=== PATIENT | female | born 1970 | race Caucasian/White ===

== ENCOUNTER → 2016-04-19 | Outpatient (CLI) | payer OTHER ==
--- NOTE | 2016-04-19 10:50 | ECHOF ---
Referral Reason:R002 palpitations MEASUREMENTS -------- HEIGHT: 160.0 cm WEIGHT: 63.5 kg BP: IVSd: 0.9 cm (0.6 - 1.1) LVIDd: 3.5 cm (3.9 - 5.3) LVPWd: 0.8 cm (0.6 - 1.1) IVSs: 0.9 cm LVIDs: 2.9 cm LVPWs: 1.0 cm LA Diam: 3.6 cm (2.7 - 3.8) LAESV Index (A-L): 23.28 ml/m Ao Diam: 2.6 cm (2.0 - 3.7) AV Cusp: 1.6 cm (1.5 - 2.6) LA Diam: 3.4 cm (2.7 - 3.8) MV EXCURSION: 15.488 mm (> 18.000) MV EF SLOPE: 85 mm/s (70 - 150) EPSS: 0.3 cm MV E Ki: 0.73 m/s MV DecT: 275 ms MV A Ki: 0.84 m/s MV E/A Ratio: 0.88 RAP: 5.00 mmHg RVSP: 23.58 mmHg FINDINGS -------- Sinus rhythm. This was a technically good study. LV size, wall thickness and systolic function are normal, with an EF greater than 55%. The right ventricle is normal in size. Normal LA size by volume 22+/-6 ml/m2. The right atrial size is normal. The aortic valve is trileaflet, and appears structurally normal. No aortic stenosis or regurgitation. Mild mitral regurgitation is present. Mild tricuspid regurgitation present. There is no evidence of pulmonary hypertension. The right ventricular systolic pressure, as measured by Doppler, is 23.58mmHg. There is no pulmonic regurgitation present. The aortic root size is normal. There is no pericardial effusion. CONCLUSIONS -------- 1. LV size, wall thickness and systolic function are normal, with an EF greater than 55%. 2. The aortic valve is trileaflet, and appears structurally normal. No aortic stenosis or regurgitation. 3. Mild mitral regurgitation is present. 4. Mild tricuspid regurgitation present. 5. There is no evidence of pulmonary hypertension. 6. The right ventricular systolic pressure, as measured by Doppler, is 23.58mmHg. RIVET SPINNER: Ayala Singh RDCS
== END | disposition home or self-care (01) ==
LOC: RADECHMAIN 08:23
PROVIDERS: ATTEND Family Medicine
DX: I08.1 Rheumatic disorders of both mitral and tricuspid valves (principal)
CPT/HCPCS: 93306

== ENCOUNTER → 2016-05-20 | Outpatient (CLI) | payer OTHER ==
[2016-05-20 09:09] LABS: Basophils % (A) 1 %; CH 29.9; CHCM 32.9; Eosinophils # (A) 0.1 k/uL (0-0.7); Eosinophils % (A) 2 %; HCT 42.8 % (34.0-46.0); HGB 13.4 gm/dL (11.4-16.0); Luc # (Auto) 0.09; Luc % (Auto) 2; Lymphocytes # (A) 1.1 k/uL (1.0-4.8); Lymphocytes % (A) 24 %; MCH 28.5 pg (25.0-35.0); MCHC 31.3 g/dL (31.0-37.0); MCV 91.1 fL (80.0-100.0); Mean Platelet Volume 6.3; Monocytes # (A) 0.2 k/uL (0-1.0); Monocytes % (A) 5 %; Neutrophils # (A) 3.1 k/uL (1.3-7.7); Neutrophils % (A) 67 %; RDW 13.1 % (11.5-15.5); WBC 4.7 k/uL (3.8-10.6); WBC (Perox) 4.96
[2016-05-20 09:30] LABS: Anion Gap 9 mmol/L; Blood Urea Nitrogen 7 mg/dL (7-17); Carbon Dioxide 26 mmol/L (22-30); Chloride 106 mmol/L (98-107); Glucose 96 mg/dL (74-99); Non-African American GFR(MDRD) >60 (>60 ml/min/1.73 sqM); Potassium 4.4 mmol/L (3.5-5.1); Sodium 141 mmol/L (137-145)
== END | disposition home or self-care (01) ==
LOC: LABPAT 08:28
PROVIDERS: ATTEND Obstetrics & Gynecology
DX: Z01.812 Encounter for preprocedural laboratory examination (principal); D21.9 Benign neoplasm of connective and other soft tissue, unspecified; R10.2 Pelvic and perineal pain
CPT/HCPCS: 80051; 82565; 82947; 84520; 85025; 87086

== ENCOUNTER 2016-05-27 05:53 | Observation (INO) | payer OTHER ==
[2016-05-16 15:26] VITALS: BMI 24.7
--- NOTE | 2016-05-24 10:44 | HP ---
DATE OF ADMISSION: 05/27/2016 HISTORY OF PRESENT ILLNESS: The patient is a 45-year-old 2, para 2-0-0-2 [address] referred [address] Dr[address] Luna for evaluation of ongoing significant pelvic pain and a fibroid uterus. She reports that she has had several months of significant midline suprapubic pain, which she had never had before. Motrin has given her minimal relief and no other interventions had been made to that date. Ultrasound showed a 4 x 4 cm fundal fibroid as well as a 2.2 cm complex left ovarian cyst. She has undergone a NovaSure endometrial ablation in the past, but pelvic pain has been building over the course of the last number of months as noted above. Her has had a previous vasectomy. She presents to discuss options and, after that discussion, has opted for definitive therapy with hysterectomy. PAST MEDICAL HISTORY: Significant for hypothyroidism. PAST SURGICAL HISTORY: Significant for laparoscopy in 2003 followed by NovaSure endometrial ablation in 2004. She additionally had a breast biopsy in 2016 on the right side. There were no anesthetic concerns. OBSTETRICAL HISTORY: 2, para 2-0-0-2, with 2 vaginal deliveries without complications. Method of contraception is vasectomy. GYNECOLOGIC HISTORY: Unremarkable with no history of any infections to include STDs. FAMILY HISTORY: Noncontributory. 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 She is a nonsmoker and denies any significant alcohol or any other social concerns. Current medications include: 1. Maxalt 10 mg p.r.n. 2. Synthroid 75 mcg daily. 3. Topiramate 50 mg daily. 4. Valtrex 1 gram daily. 5. Flonase daily. 6. Flexeril 10 mg p.r.n. 7. Vitamin D daily. 8. Zoloft 50 mg daily. ALLERGIES: BIAXIN caused nausea and vomiting. LIPITOR and PRAVACHOL both caused muscle pain. Review of systems is confined to history of present illness. PHYSICAL EXAMINATION: In general, this is a well-developed, well-nourished, white female in no acute distress. Her heart has a regular rhythm and rate without murmur. Her lungs are clear to auscultation bilaterally in all gonzalez. Her abdomen is nondistended, has normoactive bowel sounds, is soft, nontender, and without any palpable masses, hepatosplenomegaly or hernias. Her extremities are without any cyanosis, clubbing or edema and are nontender to palpation bilaterally. Pelvic examination demonstrates normal external genitalia and BUS with normal vaginal mucosa and cervix. There is no cervical motion tenderness. The uterus is 7 weeks in size, slightly irregular in shape, mobile, but with no significant descensus to the pelvis. The adnexa are normal and nontender without mass bilaterally. ASSESSMENT AND PLAN: Increasing pelvic pain and fibroid uterus: We discussed multiple different options for intervention and she has chosen definitive therapy with hysterectomy. Her examination bears out that she is only a candidate for a robotic or abdominal approach. As a result we have scheduled a da Antony robotically assisted laparoscopic hysterectomy with probable bilateral salpingectomy, and diagnostic cystoscopy. The risks and complications of these procedures have been thoroughly discussed including the risks for bleeding, bleeding requiring transfusion, infection, and injury to local structures to specifically include the bowel, bladder and ureters. We also discussed injuries that are unique to da Antony surgery to include thermal injury and the possibility of vaginal cuff dehiscence. She has understood all of these concerns and agreed to proceed. We went on to discuss the typical hospital and postoperative courses. At this time, we are scheduled for the above procedure on the morning of 05/27/16.
[~2016-05-27 05:53] MED LIST: DEXAMETHASONE SOD PHOSPHATE 10 MG/ML 1 ML VIAL IV ONE; FAMOTIDINE 20 MG/2 ML VIAL IV PRN; HYDROmorphone 1 MG/ML 1 ML SYRINGE IVP PRN; MIDAZOLAM 2 MG/2 ML VIAL IV PRN; ONDANSETRON 4 MG/2 ML VIAL IVP ONE; SCOPOLAMINE 1.5MG/72HR PATCH TRANSDERM ONE; ceFAZolin 2 GM in SODIUM CHLORIDE 0.9% 100 ML IVPB ONE
[2016-05-27] MEDS: LIDOCAINE 1% 20 ML VIAL (10MG/ML) FOR IV START INTRADERMA PRN ×2 (06:32→06:35)
[2016-05-27] MEDS: LACTATED RINGERS 1,000 ML IV SCH ×3 (06:43→19:19)
[2016-05-27] MEDS ORDERED: KETOROLAC 30 MG/ML 1 ML VIAL ONE (07:37)
[2016-05-27] MEDS ORDERED: ROCURONIUM BROMIDE 10 MG/ML 10 ML VIAL IV ONE (07:37)
[2016-05-27] MEDS ORDERED: diphenhydrAMINE 50 MG/ML 1 ML VIAL ONE (07:37)
[2016-05-27] MEDS ORDERED: MIDAZOLAM 2 MG/2 ML VIAL ONE (07:37)
[2016-05-27] MEDS ORDERED: SUCCINYLCHOLINE CHLORIDE 100 MG/5 ML SYR IV ONE (07:37)
[2016-05-27] MEDS ORDERED: NEOSTIGMINE 1 MG/ML 10 ML VIAL ONE (07:37)
[2016-05-27] MEDS ORDERED: fentaNYL (PF) 50 MCG/ML 2 ML AMP ONE (07:37)
[2016-05-27] MEDS ORDERED: LIDOCAINE 1% INJ 10MG/ML (20 ML MDV) ONE (07:37)
[2016-05-27] MEDS ORDERED: GLYCOPYRROLATE 0.2 MG/ML 2 ML VIAL ONE (07:37)
[2016-05-27] MEDS ORDERED: PROPOFOL 10 MG/ML 20 ML VIAL IV ONE (07:37)
[2016-05-27] MEDS ORDERED: IBUPROFEN 600 MG TAB PO PRN (07:38)
[2016-05-27] MEDS ORDERED: Acetaminophen-Codeine 300-30mg TAB PO PRN (07:38)
[2016-05-27] MEDS ORDERED: SIMETHICONE 80 MG CHEWABLE PO PRN (07:38)
[2016-05-27] MEDS ORDERED: diphenhydrAMINE 50 MG/ML 1 ML VIAL IVP PRN (07:38)
[2016-05-27] MEDS ORDERED: ONDANSETRON 4 MG/2 ML VIAL IVP PRN (07:38)
[2016-05-27] MEDS ORDERED: METOCLOPRAMIDE 5 MG/ML 2 ML VIAL IVP PRN (07:38)
[2016-05-27] MEDS ORDERED: BUPIVACAINE (PF) 0.5% 30 ML VIAL SQ ONE (08:03)
--- NOTE | 2016-05-27 09:34 | P.OP ---
Date of Procedure: 05/27/16 Preoperative Diagnosis: #1. Pelvic pain #2. Fibroid uterus Postoperative Diagnosis: Same Procedure(s) Performed: #1. Da Antony robotically assisted laparoscopic hysterectomy with bilateral salpingectomy #2. Diagnostic cystoscopy Anesthesia: CHANTE Surgeon: Aftab Nguyen Buffing Wheel Presser #1: Genna Flores Estimated Blood Loss (ml): 50 IV fluids (ml): 850 Urine output (ml): 300 Pathology: other (Uterus and bilateral fallopian tubes) Condition: stable Disposition: PACU Operative Findings: Preoperative pelvic examination demonstrated a 5-6 week acutely anteverted mobile normal shaped uterus with normal adnexa bilaterally. Intraoperatively, the findings were confirmed though there was a relatively large right fundal fibroid present. The tubes and ovaries otherwise appeared entirely normal. The appendix was also normal to inspection. Following the procedure, the bilateral ureteral orifices were seen peristalsing and the bladder appeared to be uninjured from a hysteroscopic and laparoscopic viewpoint. Description of Procedure: The patient was prepped and draped in usual fashion after general endotracheal anesthesia was administered by the anesthesiologist. A weighted speculum was placed and the anterior lip of the cervix grasped with a single-tooth tenaculum. The uterus was sounded to 9 cm for selection of an 8 cm uterine manipulator. The cervix measured 2 just over 2.5 cm allowing for selection of a 3 cm Omayra cup. Surgical stay sutures were placed from 10 until 8 and 2-4 and the cervix and tied down. These were then inserted through the Omayra cup and the Kaykay manipulator placed in standard fashion and of the cervix. The Kirby catheter was then placed. Attention was then turned to the abdomen where a roughly 8 mm incision was made in the vertical fold of the umbilicus allowing insertion of a 5 mm optical trocar under direct visualization without difficulty. A pneumoperitoneum was established. A site was selected approximately 10-12 cm lateral to the optical port and 1-27 m below it in the right lower quadrant where an 8 mm incision was made in the transverse plane allowing insertion of an 8 mm da Antony port under direct visualization without difficulty. A similar operation was carried out on the left side. The left port and the optical port were then divided and a roughly 10 mm incision made just above the level of the optical port allowing insertion of a 10 mm visual merchandising assistant port under direct visualization without difficulty. The scope was switched to a separate port and the 5 mm optical port removed and replaced with a and 8mm da Antony optical port. The robot was docked to the patient without difficulty and the right arm loaded with a monopolar cautery scissors 1 left arm was armed with a [place] bipolar cautery forceps. The left fallopian tube was then dissected from the underlying ovary down to the level of the utero- ovarian ligament which was then cauterized and cut through to the round ligament. The anterior bladder peritoneum was then undermined and opened sharply with monopolar cautery. The uterine vasculature was skeletonized and then cauterized using the [place] bipolar cautery forceps. Attention was turned to the other side where similar operations were carried out without difficulty. Once the uterine vasculature had been cauterized bilaterally attention was turned to the posterior cul-de-sac where the Omayra cup was identified and opened sharply with the monopolar cautery. This was followed around in both directions using cautery as necessary along the way. These her path was to come around the left aspect of the vasculature and followed across the anterior leaf of the peritoneum having further dissected the bladder peritoneum distally. Ultimately 2 incisions were connected on the right side and bleeding was controlled. The uterus was removed into the vagina and the monopolar scissors replaced with a laparoscopic suturing device. A stitch of 0 strata fix suture was utilized to close the vaginal cuff from one angle to the other. The cuff was then thoroughly suctioned irrigated and reexamined and hemostasis noted to be adequate. I then removed myself from the controls and return to the patient where the Kirby catheter was removed and a diagnostic cystoscope placed within the bladder. The bilateral ureteral hallux were noted and both seen to be peristalsing. The bladder was then filled to some extent and the dome examined from the cystoscopic and laparoscopic side with no evidence of any injury. The scope was then removed and the Kirby catheter replaced. The robot was undocked, the patient leveled and all trochars removed. The incisions were closed with interrupted subcuticular stitches of 4- 0 Vicryl which were then infused with a total of 10 mL of half percent Marcaine without epinephrine. Estimated blood loss for the case was approximately 50 mL. There were no complications. All sponge, history, needle counts were correct. The patient tolerated the procedure well and proceeded to the recovery room in stable condition.
[2016-05-27] MEDS ORDERED: HYDROmorphone 1 MG/ML 1 ML SYRINGE IVP ONE ×2 (10:19→10:25)
[2016-05-27] MEDS: SENNOSIDES-DOCUSATE SODIUM 1 EACH TAB PO SCH ×2 (13:27→21:30)
[2016-05-27] MEDS: KETOROLAC 30 MG/ML 1 ML VIAL IVP PRN ×2 (13:30→19:17)
[2016-05-27] MEDS: Acetaminophen-Codeine 300-30mg TAB PO PRN (21:31)
[2016-05-28] MEDS: KETOROLAC 30 MG/ML 1 ML VIAL IVP PRN (02:18)
[2016-05-28] MEDS: LACTATED RINGERS 1,000 ML IV SCH (04:56)
[2016-05-28] MEDS: Acetaminophen-Codeine 300-30mg TAB PO PRN (04:59)
[2016-05-28 08:04] VITALS: PULSE 57
[2016-05-28 08:11] LABS: Basophils % (A) 0 %; CH 29.9; CHCM 33.2; Eosinophils % (A) 1 %; HCT 32.5 % (34.0-46.0); HDW 2.31; HGB 10.8 gm/dL (11.4-16.0); Luc # (Auto) 0.11; Luc % (Auto) 2; Lymphocytes # (A) 1.6 k/uL (1.0-4.8); Lymphocytes % (A) 27 %; MCHC 33.1 g/dL (31.0-37.0); MCV 90.6 fL (80.0-100.0); Mean Platelet Volume 6.9; Monocytes # (A) 0.3 k/uL (0-1.0); Monocytes % (A) 5 %; Neutrophils # (A) 3.9 k/uL (1.3-7.7); Neutrophils % (A) 65 %; RBC 3.58 m/uL (3.80-5.40); RDW 12.9 % (11.5-15.5); WBC (Perox) 6.62
[2016-05-28 08:30] VITALS: BP 94/60; RESP 20; TEMP 97.6
--- NOTE | 2016-05-28 08:48 | P.DS ---
Providers Date of admission: 05/28/16 02:28 Expected date of discharge: 05/28/16 Attending physician: Aftab Nguyen Primary care physician: Stated None - Discharge Diagnosis(es) (1) Fibroid uterus Current Visit: Yes Status: Acute (2) Pelvic pain Current Visit: Yes Status: Acute Hospital Course: The patient is a 45-year-old 2 para 2001 who was referred by Dr. Salomon for ongoing significant pelvic pain and admitted fibroid uterus. She's had several months of significant midline suprapubic pain which is worsening over time and significantly more than she's had in the past. She's had minimal relief from [id number] pain medications. Ultrasound documented fibroids as noted above. She has undergone ablation in the past and continues to have significantly increasing pain possibly consistent with hematometra or adenomyosis. She has requested definitive treatment with hysterectomy. Her examination made da Antony the most reasonable approach. She was taken to the operating room where she underwent da Antony robotically assisted laparoscopic hysterectomy with bilateral salpingectomy and the diagnostic cystoscopy. The procedures were carried out in an uncomplicated fashion. Her postoperative course was unremarkable with vital signs remaining stable and her temperature was afebrile throughout. She was deemed stable for discharge by postoperative day #1 was discharged home to follow-up in the office in 2 weeks for incision checks and 8 weeks routinely. Discharge instructions included calling for any significantly increased bleeding, abdominal pain, GI complaints, incisional complaints, or anything else that concerned her. She was additionally instructed to have nothing in the vagina for at least 8 weeks time to include intercourse and to abstain from heavy lifting over the next several weeks. She was last instructed to do no driving until off of all pain medications or 2 weeks' time, whichever came first. She understood her instructions and agrees to follow up as noted above. Discharge medications included a prescription for Tylenol 3, 1-2 by mouth every 6 hours when necessary pain, #30 dispensed with no refills. Discharge hemoglobin and hematocrit were 10.8 and 32.5 respectively. Procedures: #1. Da Antony robotically assisted laparoscopic hysterectomy with bilateral salpingectomy #2. Diagnostic cystoscopy Patient Condition at Discharge: Good Plan - Discharge Summary New Discharge Prescriptions: Acetaminophen-Codeine 300-30mg [Tylenol #3] 2 tab PO Q6H PRN #30 tablet PRN Reason: Pain Discharge Medication List Acyclovir 5% Oint [Zovirax Oint] 1 applic TOPICAL 5XD PRN 05/16/16 [History] Cholecalciferol [Vitamin D3] 2,000 unit PO DAILY 05/16/16 [History] Cyclobenzaprine [Flexeril] 10 mg PO HS PRN 05/16/16 [History] Ibuprofen [Motrin] 800 mg PO Q8H PRN 05/16/16 [History] Levothyroxine Sodium [Synthroid] 75 mcg PO DAILY 05/16/16 [History] Multivitamin [Multivitamins Adult Gummies] 1 tab PO DAILY 05/16/16 [History] Rizatriptan Benzoate [Maxalt] 10 mg PO DAILY PRN 05/16/16 [History] Sertraline [Zoloft] 50 mg PO HS 05/16/16 [History] Topiramate [Topamax] 50 mg PO HS 05/16/16 [History] valACYclovir HCL [Valtrex] 1,000 mg PO DAILY PRN 05/16/16 [History] Acetaminophen-Codeine 300-30mg [Tylenol #3] 2 tab PO Q6H PRN #30 tablet [Rx] Follow up Appointment(s)/Referral(s): Aftab Nguyen MD [STAFF PHYSICIAN] - 2 Weeks Patient Instructions/Handouts: Laparoscopic Hysterectomy (DC), Laparoscopic Hysterectomy (GEN) Discharge Disposition: HOME SELF-CARE
[2016-05-28] MEDS: SENNOSIDES-DOCUSATE SODIUM 1 EACH TAB PO SCH (09:10)
== END 2016-05-28 09:26 | disposition home or self-care (01) ==
LOC: OR 05:53 → 6PED 09:45 → OR 05-28 02:28
PROVIDERS: ADMIT Obstetrics & Gynecology; ATTEND Obstetrics & Gynecology
DX: D25.9 Leiomyoma of uterus, unspecified (principal); E03.9 Hypothyroidism, unspecified; N83.8 Other noninflammatory disorders of ovary, fallopian tube and broad ligament; N87.9 Dysplasia of cervix uteri, unspecified; N72 Inflammatory disease of cervix uteri; Z79.899 Other long term (current) drug therapy; Z79.51 Long term (current) use of inhaled steroids; Z88.1 Allergy status to other antibiotic agents; Z88.8 Allergy status to other drugs, medicaments and biological substances; G43.909 Migraine, unspecified, not intractable, without status migrainosus
CPT/HCPCS: 52000; 58571; S2900; 81025; 85025; 86850; 86900; 86901; 88307

== ENCOUNTER → 2016-12-31 | Outpatient (CLI) | payer OTHER ==
--- NOTE | 2016-12-31 08:10 | US ---
EXAMINATION TYPE: US thyroid st tissue head/neck DATE OF EXAM: 12/31/2016 COMPARISON: US CLINICAL HISTORY: R13.10 DYSPHAGIA. Dysphagia, pt had right thyroid removed GLAND SIZE: Right Lobe: Surgically absent cm Left Lobe: 5.2 x 2.0 x 1.6 cm Overall Parenchyma: heterogeneous Isthmus Thickness: 0.3 cm Bilateral neck scanned, no evidence of lymphadenopathy. No evidence of residual tissue on right/ Left thyroid grossly heterogeneous IMPRESSION: 1. Left thyroid lobe is diffusely heterogenous and enlarged without discrete nodule. 2 thyroidectomy changes right lobe.
== END | disposition home or self-care (01) ==
LOC: RADUSWWP 07:39
PROVIDERS: ATTEND Family Medicine
DX: R13.10 Dysphagia, unspecified (principal)
CPT/HCPCS: 76536

== ENCOUNTER → 2017-06-19 | Outpatient (CLI) | payer BC ==
--- NOTE | 2017-06-20 08:00 | US ---
EXAMINATION TYPE: US pelvis complete transvag DATE OF EXAM: 06/19/2017 COMPARISON: US CLINICAL HISTORY: R10.2 Pelvic and Perineal Pain. Pt states bloating, pelvic pain more on right/ Hyst erectomy 1 year ago TECHNIQUE: Transvaginal (TV) and Transabdominal (TA) . Transabdominal and Transvaginal ordered by annetta salamanca Date of LMP: 1 year ago EXAM MEASUREMENTS: Uterus: Surgically absent cm Right Ovary: 3.1 x 3.8 x 4.2 cm Left Ovary: 2.2 x 2.0 x 2.7 cm 1. Uterus: Surgically absent 2. Endometrium: Surgically absent 3. Right Ovary: Cyst with septation= 3.7 x 3.1 x 3.1 cm and hypoechoic complex follicle = 1.4 x 1.3 x 1.9 cm 4. Left Ovary: Dominant follicle = 1.6 x 1.3 x 1.4 cm 5. Bilateral Adnexa: wnl 6. Posterior cul-de-sac: wnl IMPRESSION: 1. Slightly complex right ovarian cyst with a single septation. Following consensus guidelines yearly surveillance is recommended. Additional right-sided hypoechoic complex follicle may represent a hemo rrhagic follicle or less likely endometrioma. 2. Surgical absence of uterus.
== END | disposition home or self-care (01) ==
LOC: RADUSWWP 16:21
PROVIDERS: ATTEND Family Medicine
DX: N83.201 Unspecified ovarian cyst, right side (principal); Z90.710 Acquired absence of both cervix and uterus
CPT/HCPCS: 76830; 76856

== ENCOUNTER → 2018-01-02 | Outpatient (CLI) | payer BC ==
--- NOTE | 2018-01-12 10:23 | MM ---
Reason for exam: additional evaluation requested from prior study. Last mammogram was performed 2 years and 6 months ago. History: Family history of breast cancer in mother at age 64. Excisional biopsy of both breasts, 2018. Took hormonal contraceptives for 8 years beginning at age 19. Physical Findings: Nurse did not find any significant physical abnormalities on exam. MG 3D Diag Mammo W/Cad KALYN Bilateral CC and MLO view(s) were taken. Prior study comparison: June 13, 2016, mammogram, performed at [facility]. July 20, 2015, right breast mammogram, performed at [facility]. May 13, 2014, bilateral MG screening mammo w CAD. June 18, 2005, mammogram, performed at [facility]. The breast tissue is heterogeneously dense. This may lower the sensitivity of mammography. Finding: There is a 6 x 5 mm equal density (isodense), circumscribed oval mass located 5 cm from the nipple in the 3 o'clock middle position of the right breast. New finding since June 13, 2016. These results were verbally communicated with the patient on 01/12/18. ASSESSMENT: Incomplete: need additional imaging evaluation, BI-RAD 0 RECOMMENDATION: Ultrasound of the right breast.
== END | disposition home or self-care (01) ==
LOC: RADMAMWWP 09:04
PROVIDERS: ATTEND Family Medicine
DX: R92.8 Other abnormal and inconclusive findings on diagnostic imaging of breast (principal)
CPT/HCPCS: 77062; 77066

== ENCOUNTER → 2018-02-02 | Outpatient (CLI) | payer BC ==
--- NOTE | 2018-02-03 08:41 | USB ---
Reason for exam: additional evaluation requested from abnormal screening. History: Family history of breast cancer in mother at age 64. Excisional biopsy of both breasts, 2018. Took hormonal contraceptives for 8 years beginning at age 19. US Breast Workup Limited RT Right limited breast ultrasound including focal area of concern, retroareolar and axilla demonstrates a 0.9 x 0.8 x 0.4cm oval, hypoechoic lesion at 2 o'clock for which a biopsy is recommended, a 0.4 x 0.4 x 0.3cm oval, cystic lesion at 3 o'clock and a 0.5 x 0.7 x 0.2cm oval duct ectasia with debris at 4 o'clock. These results were verbally communicated with the patient and result sheet given to the patient on 02/02/18. ASSESSMENT: Suspicious, BI-RAD 4 RECOMMENDATION: Ultrasound core biopsy of the right breast. Patient request to schedule appointment with breast surgeon at [facility] with Dr. Guardado. PRELIMINARY REPORT CALLED AND FAXED TO DR. CARRANZA AND DR. GUARDADO ON 02/03/18.
== END ==
LOC: RADUSWWP 15:23
PROVIDERS: ATTEND Family Medicine
DX: R92.8 Other abnormal and inconclusive findings on diagnostic imaging of breast (principal)

== ENCOUNTER → 2019-11-23 | Outpatient (CLI) | payer BC ==
--- NOTE | 2019-11-23 13:43 | XR ---
Cervical spine HISTORY: Left upper extremity radiculopathy, numbness and tingling for 1 month 5 views of the cervical spine Oblique images show some foraminal encroachment at C4-5 on the right, C5-6 on the left. Cervical vert ebral bodies show preserved height and bone mineralization. Minimal retrolisthesis grade 1 C5-6 and a nterolisthesis grade 1 C2-3. Loss of disc height present at C5-6, spondylosis most notably at C4 and C6 inferior endplates. Prevertebral soft tissues are normal. IMPRESSION: Degenerative disc disease.
== END | disposition home or self-care (01) ==
LOC: RADXRYALE 10:56
PROVIDERS: ATTEND Nurse Practitioner
DX: M50.30 Other cervical disc degeneration, unspecified cervical region (principal)
CPT/HCPCS: 72050

== ENCOUNTER → 2020-09-22 | Outpatient (CLI) | payer BC ==
--- NOTE | 2020-09-27 13:16 | MM ---
Reason for exam: screening (asymptomatic). Last mammogram was performed 2 years and 9 months ago. History: Family history of breast cancer in mother at age 64. Excisional biopsy of both breasts, 2018. Took hormonal contraceptives for 8 years beginning at age 19. Physical Findings: A clinical breast exam by your physician is recommended on an annual basis and results should be correlated with mammographic findings. MG 3D Screening Mammo W/Cad Bilateral CC and MLO view(s) were taken. Prior study comparison: January 02, 2018, bilateral MG 3d diag mammo w/cad KALYN. June 13, 2016, mammogram, performed at [facility]. There are scattered fibroglandular densities. Right upper outer quadrant biopsy clip. ASSESSMENT: Benign, BI-RAD 2 RECOMMENDATION: Routine screening mammogram of both breasts in 1 year.
== END | disposition home or self-care (01) ==
LOC: RADMAMWWP 07:36
PROVIDERS: ATTEND Family Medicine
DX: Z12.31 Encounter for screening mammogram for malignant neoplasm of breast (principal); Z80.3 Family history of malignant neoplasm of breast
CPT/HCPCS: 77063; 77067

== ENCOUNTER → 2021-06-07 | Outpatient (CLI) | payer BC ==
--- NOTE | 2021-06-07 10:08 | XR ---
Lumbosacral spine HISTORY: Low back pain 5 views lumbosacral spine Bone mineralization is reduced. Lumbar vertebral bodies show preserved height and alignment. There is some loss of disc height at intervertebral levels L3-4, L4-5 and L5-S1. Sclerosis is present in the posterior elements of the lower lumbar spine. There is mild multilevel spondylosis. No evident spondy lolysis. There is a levoscoliosis. IMPRESSION: Degenerative disc disease and spinal curvature
== END | disposition home or self-care (01) ==
LOC: RADXRYALE 09:18
PROVIDERS: ATTEND Nurse Practitioner Family
DX: M51.37 Other intervertebral disc degeneration, lumbosacral region (principal); M43.8X7 Other specified deforming dorsopathies, lumbosacral region
CPT/HCPCS: 72110

== ENCOUNTER → 2021-06-27 | Outpatient (CLI) | payer BC ==
--- NOTE | 2021-06-27 10:37 | MR ---
EXAMINATION TYPE: MR lumbar spine wo con DATE OF EXAM: 06/27/2021 COMPARISON: Lumbar spine x-ray June 07, 2021 HISTORY: Pain and numbness in Left Leg TECHNIQUE: Multiplanar, multisequence imaging of the lumbar spine is performed without IV contrast. FINDINGS: Sagittal images of the lumbar spine show vertebral body heights and alignment to appear sat isfactory. There is slight levoconvex scoliosis centered at L3-L4 level. Multilevel disc desiccation but the disc space heights are maintained. The conus medullaris is normal in position and signal end ing at mid L1 level. The bone marrow signal intensity is within normal limits. Axial images show mild facet arthropathy lumbosacral junction. No significant disc herniation or osbaldo l effacement is seen. Neural foramina are patent bilaterally at all lumbar levels. Paraspinal muscle bulk is preserved. IMPRESSION: Slight scoliotic curvature. No suspicious disc herniation to account for left-sided radic ulopathy type symptoms.
== END | disposition home or self-care (01) ==
LOC: RADMRIMAIN 08:00
PROVIDERS: ATTEND Nurse Practitioner Family
DX: M41.86 Other forms of scoliosis, lumbar region (principal)
CPT/HCPCS: 72148

== ENCOUNTER → 2021-09-27 | Outpatient (CLI) | payer BC ==
--- NOTE | 2021-09-28 07:56 | MM ---
Reason for Exam: Screening (asymptomatic). Last screening mammogram was performed 12 month(s) ago. Patient History: Menarche at age 14. First Full-Term at age 23. Hysterectomy at age 45. Hormonal Contraceptives for 8 years from age 19 until age 27. 2018, Bilateral Excisional Biopsy. Mother had breast cancer, age 64. Risk Values: [place] 5 year model risk: 2.2%. NCI Lifetime model risk: 19.5%. Prior Study Comparison: 06/13/2016 Screening Mammogram, [facility]. 01/02/2018 Bilateral Diagnostic Mammogram, [facility]. 09/22/2020 Bilateral Screening Mammogram, [facility]. Tissue Density: The breast tissue is heterogeneously dense. This may lower the sensitivity of mammography. Findings: Analyzed By CAD. There is no suspicious group of microcalcifications or new suspicious mass in either breast. Overall Assessment: Negative, BI-RAD 1 Management: Screening Mammogram of both breasts in 1 year. A clinical breast exam by your physician is recommended on an annual basis and results should be correlated with mammographic findings. Electronically signed and approved by: Nima Larsen M.D. Radiologis
== END | disposition home or self-care (01) ==
LOC: RADMAMWWP 07:57
PROVIDERS: ATTEND Family Medicine
DX: Z12.31 Encounter for screening mammogram for malignant neoplasm of breast (principal)
CPT/HCPCS: 77063; 77067

== ENCOUNTER → 2023-08-29 | Outpatient (CLI) | payer BC ==
--- NOTE | 2023-08-30 04:10 | US ---
EXAMINATION TYPE: US thyroid st tissue head/neck DATE OF EXAM: 08/29/2023 COMPARISON: Thyroid ultrasound 01/09/2023, 12/31/2016 CLINICAL INDICATION: Female, 53 years old with history of E04.9 GOITER; Right lobe removed with histo ry of nodule extending to chest. On thyroid meds. GLAND SIZE: Right Lobe: Surgically absent Left Lobe: 4.6 x 2.0 x 2.3 cm, previously measured 5.4 x 2.1 x 2.6 cm Overall Parenchyma: heterogeneous Isthmus Thickness: 0.4 cm NODULES LEFT: # of nodules measured on left: 0 - the degree of heterogeneity makes it difficult to deline ate discrete nodules Right thyroid lobe is surgically absent. ISTHMUS: # of nodules measured in the isthmus: 0 Bilateral neck scanned, no evidence of lymphadenopathy. IMPRESSION: 1. Heterogenous appearance of the left thyroid lobe without discrete nodule redemonstrated. 2. Right thyroid lobe again surgically absent.
== END | disposition home or self-care (01) ==
LOC: RADUSWWP 13:53
PROVIDERS: ATTEND Internal Medicine
DX: E04.9 Nontoxic goiter, unspecified (principal)
CPT/HCPCS: 76536

== ENCOUNTER → 2023-08-29 | Outpatient (CLI) | payer BC ==
--- NOTE | 2023-08-29 14:44 | CT ---
EXAMINATION TYPE: CT sinus wo con DATE OF EXAM: 08/29/2023 COMPARISON: None HISTORY: chronic sinusitis CT DLP: [address] of the paranasal sinuses was performed in the axial and coronal planes. Bone and soft tissue settings are submitted. The paranasal sinuses demonstrate normal aeration and development. Mild mucosal thickening at the base of the right maxillary sinus. Remainder of the paranasal sinuses are well-aerated. The osteal meatal units are patent bilaterally. Nasal septum is deviated from right to left. No bony destructive changes are seen within the field of view. IMPRESSION: Mild chronic sinusitis.
== END | disposition home or self-care (01) ==
LOC: RADCTMAIN 14:23
PROVIDERS: ATTEND Otolaryngology
DX: J32.0 Chronic maxillary sinusitis (principal)
CPT/HCPCS: 70486

== ENCOUNTER → 2024-01-12 | Outpatient (CLI) | payer BC ==
--- NOTE | 2024-01-13 13:45 | MM ---
Reason for Exam: Screening (asymptomatic). Last screening mammogram was performed 12 month(s) ago. Patient History: Menarche at age 14. First Full-Term at age 23. Hysterectomy at age 45. Postmenopausal. Patient has history of breast feeding. Hormonal Contraceptives for 8 years from age 19 until age 27. 2018, Bilateral Excisional Biopsy. Mother had breast cancer, age 64. Risk Values: Ninoska 5 year model risk: 2.3%. NCI Lifetime model risk: 18.8%. Prior Study Comparison: 06/13/2016 Screening Mammogram, [facility]. 01/02/2018 Bilateral Diagnostic Mammogram, [facility]. 09/22/2020 Bilateral Screening Mammogram, [facility]. 09/27/2021 Bilateral MG 3D screening mammo w/cad, [facility]. 01/09/2023 Bilateral MG 3D screening mammo w/cad, [facility]. Tissue Density: There are scattered areas of fibroglandular density. Findings: Analyzed By CAD. Right breast: There is no suspicious group of microcalcifications or new suspicious mass. Left breast: There is no suspicious group of microcalcifications or new suspicious mass. Overall Assessment: Negative, BI-RAD 1 Management: Screening Mammogram of both breasts in [address] [facility] will attempt to contact patient to return for supplemental views and ultrasound if indicated. Patient should continue monthly self-breast exams. A clinical breast exam by your physician is recommended on an annual basis. This exam should not preclude additional follow-up of suspicious palpable abnormalities. Note on Ninoska scores and lifetime risk: 1. A Ninoska score greater than 3% is considered moderate risk. If this is the case, consider specialist referral to assess eligibility for a risk reducing agent. 2. If overall lifetime risk for the development of breast cancer is 20% or higher, the patient may qualify for future screening with alternating mammogram and breast MRI. [facility], , 01/13/2024 1:30 PM. Electronically signed and approved by: Mauri Maier DO
== END | disposition home or self-care (01) ==
LOC: RADMAMWWP 07:01
PROVIDERS: ATTEND Family Medicine
DX: Z12.31 Encounter for screening mammogram for malignant neoplasm of breast
CPT/HCPCS: 77063; 77067

== ENCOUNTER 2024-01-13 09:18 | Day surgery (SDC) | payer BC ==
[2024-01-12 09:52] VITALS: BMI 32.5
[~2024-01-13 09:18] MED LIST changes: -DEXAMETHASONE SOD PHOSPHATE 10 MG/ML 1 ML VIAL IV ONE; -FAMOTIDINE 20 MG/2 ML VIAL IV PRN; -HYDROmorphone 1 MG/ML 1 ML SYRINGE IVP PRN; +LIDOCAINE 1% (10MG/ML) FOR IV START INTRADERMA PRN; -MIDAZOLAM 2 MG/2 ML VIAL IV PRN; -ONDANSETRON 4 MG/2 ML VIAL IVP ONE; -SCOPOLAMINE 1.5MG/72HR PATCH TRANSDERM ONE; -ceFAZolin 2 GM in SODIUM CHLORIDE 0.9% 100 ML IVPB ONE
[2024-01-13 09:53] VITALS: RESP 16; TEMP 97.7
[2024-01-13] MEDS: IV FLUID CONTINUATION 1,000 ML IV ONE (09:54)
[2024-01-13] MEDS: LACTATED RINGERS 1,000 ML IV SCH (09:55)
[2024-01-13] MEDS ORDERED: PROPOFOL 10 MG/ML 20 ML VIAL IV ONE (10:04)
[2024-01-13] MEDS ORDERED: LIDOCAINE 1% INJ 10MG/ML (20 ML MDV) ONE (10:04)
--- NOTE | 2024-01-13 10:13 | P.PCN ---
Date of Procedure: 01/13/24 Procedure(s) Performed: BRIEF HISTORY: Patient is a 53-year-old, pleasant, white female scheduled for an upper endoscopy as a part evaluation of GERD for the last 1 year duration. Lately she has been having chronic hoarseness. She was started on Protonix 40 mg daily and so far remains the same PROCEDURE PERFORMED: Esophagogastroduodenoscopy with biopsy. PREOPERATIVE DIAGNOSIS: GERD/chronic hoarseness. IV sedation per anesthesia. PROCEDURE: After informed consent was obtained, the patient was brought into the endoscopy unit. IV sedation was administered by Anesthesia under continuous monitoring. Initially the Olympus GIF-140 video endoscope was inserted into the mouth. Esophagus intubated without any difficulty. It was gradually advanced into the stomach and duodenum and carefully examined. The bulb and the second part of the duodenum appeared normal. The scope at this time was withdrawn to the stomach, adequately insufflated with air, and upon careful examination, mucosa of the antrum, had linear erosions in the distal esophagus consistent with gastritis and biopsies were done from this area. Mucosa body, cardia and the fundus appeared normal. The scope was then withdrawn into the esophagus. Hiatal hernia noted. The GE junction was located at 39 cm from the incisors. The esophagus appeared normal. There were no erosions or ulcerations seen, biopsies were done from the distal esophagus and the patient tolerated the procedure well. IMPRESSION: 1. Antral erosive gastritis. 2. Small hiatal hernia no evidence of esophagitis or Argueta's esophagus. RECOMMENDATIONS: The findings of this examination were discussed with the patient as well as her family. She was advised to follow-up with the biopsy results. Continue with Protonix 40 mg daily and follow antireflux measures..
[2024-01-13 10:46] VITALS: BP 105/59; PULSE 70
== END 2024-01-13 11:13 | disposition home or self-care (01) ==
LOC: ORWHC2ENDO 09:18
PROVIDERS: ATTEND Internal Medicine Gastroenterology
DX: R12 Heartburn
CPT/HCPCS: 43239; 88305